=== PATIENT | male | born 1985 | race Hispanic/Latino ===

== ENCOUNTER 2020-07-19 16:10 | Outpatient (CLI) | payer BC ==
--- NOTE | 2020-07-19 16:58 | ULT ---
VENOUS DOPPLER ULTRASOUND OF THE RIGHT LOWER EXTREMITY: 07/19/20 HISTORY: Edema of the right lower extremity. Swelling of the right calf. TECHNIQUE: Cavanaugh scale, color flow and spectral Doppler imaging of the deep venous system of the right lower extr emity was performed. FINDINGS: There is absence of compression and flow in the distal femoral and popliteal veins and incomplete com pression with partial flow due to partially occluding thrombus in the mid right femoral vein. The rem ainder of the deep venous system is otherwise patent. IMPRESSION: DVT in the right lower extremity. Report was called over the telephone to Dr. Maykel Shannon at 4:38 p.m. POS: OFF
== END 2020-07-19 16:11 | disposition home or self-care (01) ==
LOC: BICULT 16:10
PROVIDERS: ATTEND Family Medicine
DX: M79.89 Other specified soft tissue disorders (principal); I82.401 Acute embolism and thrombosis of unspecified deep veins of right lower extremity